=== PATIENT | female | born 2000 | race Two or more races ===

== ENCOUNTER 2020-11-17 21:27 | Emergency (ER) | payer OTHER ==
[~2020-11-17] VITALS: Ht 154.9 cm; Wt 77.1 kg
[2020-11-17] MEDS ORDERED: PRENATABS FA T1 EACH (21:44)
== END 2020-11-18 02:24 ==
LOC: ER 21:27
DX: O26.891 Other specified pregnancy related conditions, first trimester (principal); R10.2 Pelvic and perineal pain; Z3A.14 14 weeks gestation of pregnancy

== ENCOUNTER 2020-11-27 15:38 | Emergency (ER) | payer OTHER ==
[~2020-11-27] VITALS: Ht 157.5 cm; Wt 77.6 kg
[~2020-11-27 15:38] MED LIST: PRENATABS FA T1 EACH
== END 2020-11-27 20:20 | disposition home or self-care (01) ==
LOC: ER 15:38
DX: R10.2 Pelvic and perineal pain (principal); Z3A.15 15 weeks gestation of pregnancy

== ENCOUNTER 2020-11-28 13:51 | Inpatient (IN) | payer OTHER ==
[~2020-11-28] VITALS: Ht 157.5 cm; Wt 77.6 kg
== END 2020-12-04 14:12 | disposition home or self-care (01) | DRG 833 ==
LOC: ER 13:51 → SEC-K 17:25 → OB/GYN 17:25
PROVIDERS: ADMIT Obstetrics & Gynecology; ATTEND Obstetrics & Gynecology
PROC: BT4JZZZ Ultrasonography of Kidneys and Bladder (ICD-10-PCS; principal; 2020-11-28)
PROC: BT4JZZZ Ultrasonography of Kidneys and Bladder (ICD-10-PCS; 2020-12-03)
DX: O99.891 Other specified diseases and conditions complicating pregnancy (principal); N20.9 Urinary calculus, unspecified; O23.42 Unspecified infection of urinary tract in pregnancy, second trimester; Z3A.15 15 weeks gestation of pregnancy; R30.0 Dysuria; Z20.822 Contact with and (suspected) exposure to COVID-19

== ENCOUNTER 2021-02-02 22:22 | Outpatient (CLI) | payer OTHER | END 2021-02-03 16:00 | disposition home or self-care (01) | LOC: OBS/DEL 22:22 | PROVIDERS: ATTEND Obstetrics & Gynecology | DX: O26.892 Other specified pregnancy related conditions, second trimester (principal); Z04.3 Encounter for examination and observation following other accident; W18.09XA Striking against other object with subsequent fall, initial encounter; Y93.89 Activity, other specified; Y92.89 Other specified places as the place of occurrence of the external cause; Y99.8 Other external cause status; Z3A.25 25 weeks gestation of pregnancy ==

== ENCOUNTER 2021-02-06 15:50 | Outpatient (CLI) | payer OTHER | END 2021-02-06 16:47 | disposition home or self-care (01) | LOC: PRENATAL 15:50 | PROVIDERS: ATTEND Obstetrics & Gynecology Maternal & Fetal Medicine | DX: O35.0XX1 Maternal care for (suspected) central nervous system malformation in fetus, fetus 1 (principal); O35.3XX1 Maternal care for (suspected) damage to fetus from viral disease in mother, fetus 1; O98.512 Other viral diseases complicating pregnancy, second trimester; O44.02 Complete placenta previa NOS or without hemorrhage, second trimester; Z36.89 Encounter for other specified antenatal screening; Z3A.26 26 weeks gestation of pregnancy ==

== ENCOUNTER 2021-03-14 19:49 | Inpatient (IN) | payer OTHER ==
[~2021-03-14] VITALS: Ht 157.5 cm; Wt 83.5 kg
[2021-03-14] MEDS ORDERED: PRENATAL TABLE1 EAC1 PO (20:47)
== END 2021-03-15 18:01 | disposition home or self-care (01) | DRG 833 ==
LOC: OBS/DEL 19:49 → LDR 23:06
PROVIDERS: ADMIT Obstetrics & Gynecology; ATTEND Obstetrics & Gynecology
PROC: 4A1HXFZ Monitoring of Products of Conception, Cardiac Rhythm, External Approach (ICD-10-PCS; principal; 2021-03-14)
PROC: BY4FZZZ Ultrasonography of Third Trimester, Single Fetus (ICD-10-PCS; 2021-03-14)
PROC: BU46ZZZ Ultrasonography of Uterus (ICD-10-PCS; 2021-03-14)
DX: O99.013 Anemia complicating pregnancy, third trimester (principal); Z53.29 Procedure and treatment not carried out because of patient's decision for other reasons; D64.9 Anemia, unspecified; Z3A.31 31 weeks gestation of pregnancy

== ENCOUNTER 2021-03-25 10:46 | Outpatient (CLI) | payer OTHER ==
[~2021-03-25 10:46] MED LIST changes: +PRENATAL TABLE1 EAC1 PO
== END 2021-03-25 12:32 | disposition home or self-care (01) ==
LOC: PRENATAL 10:46
PROVIDERS: ATTEND Obstetrics & Gynecology Maternal & Fetal Medicine
DX: O26.843 Uterine size-date discrepancy, third trimester (principal); O44.03 Complete placenta previa NOS or without hemorrhage, third trimester; O36.8131 Decreased fetal movements, third trimester, fetus 1; O35.0XX1 Maternal care for (suspected) central nervous system malformation in fetus, fetus 1; Z36.89 Encounter for other specified antenatal screening; Z3A.32 32 weeks gestation of pregnancy

== ENCOUNTER 2021-05-05 12:26 | Inpatient (IN) | payer OTHER ==
[~2021-05-05] VITALS: Ht 157.5 cm; Wt 3.2 kg
== END 2021-05-08 13:25 | disposition home or self-care (01) | DRG 785 ==
LOC: OB/GYN 12:26 → LDR 12:26 → OB/GYN 19:27
PROVIDERS: ADMIT Obstetrics & Gynecology; ATTEND Obstetrics & Gynecology
PROC: 0UB70ZZ Excision of Bilateral Fallopian Tubes, Open Approach (ICD-10-PCS; 2021-05-05)
PROC: 4A1HXCZ Monitoring of Products of Conception, Cardiac Rate, External Approach (ICD-10-PCS; 2021-05-05)
PROC: 10D00Z1 Extraction of Products of Conception, Low, Open Approach (ICD-10-PCS; principal; 2021-05-05 14:00)
DX: O34.211 Maternal care for low transverse scar from previous cesarean delivery (principal); O99.613 Diseases of the digestive system complicating pregnancy, third trimester; Z20.822 Contact with and (suspected) exposure to COVID-19; K66.0 Peritoneal adhesions (postprocedural) (postinfection); Z30.2 Encounter for sterilization; Z3A.38 38 weeks gestation of pregnancy; Z37.0 Single live birth